=== PATIENT | female | born 1960 | race Caucasian/White ===

== ENCOUNTER → 2016-09-11 07:52 | Outpatient (CLI) | payer BC | END | disposition home or self-care (01) | LOC: D.NM 07:52 | DX: K31.84 Gastroparesis (principal) ==

== ENCOUNTER → 2016-11-19 17:07 | Outpatient (CLI) | payer BC | END | disposition home or self-care (01) | LOC: D.MAMMO 16:15 | DX: Z12.31 Encounter for screening mammogram for malignant neoplasm of breast (principal) ==

== ENCOUNTER → 2017-01-06 07:32 | Outpatient (CLI) | payer BC | END | disposition home or self-care (01) | LOC: D.NM 07:32 | DX: D37.1 Neoplasm of uncertain behavior of stomach (principal) ==

== ENCOUNTER → 2017-07-24 13:06 | Outpatient (CLI) | payer BC | END | disposition home or self-care (01) | LOC: D.RAD 13:06 | DX: R11.2 Nausea with vomiting, unspecified (principal); Z90.3 Acquired absence of stomach [part of] ==

== ENCOUNTER 2017-07-24 20:59 | Emergency (ER) | payer BC ==
[2017-07-25 00:04] LABS: BASOPHILS 0.4 % (0-2); EOSINOPHILS 3.4 % (0-7); HEMATOCRIT 33.6 % (36.0-48.0); HEMOGLOBIN 11.3 g/dL (12-16); IMMATURE GRANULOCYTES 0.6 % (0-5); LYMPHOCYTES 15.7 % (15-50); MCH 32.7 pg (26.0-34.0); MCHC 33.6 g/dL (31.0-37.0); MCV 97.1 fL (80.0-100.0); MEAN PLATELET VOLUME 9.2 fL (7.4-10.4); MONOCYTES 5.6 % (2-11); NEUTROPHILS 74.3 % (40-80); PLATELET COUNT 352 10x3/uL (130-400); RBC 3.46 10x6/uL (4.00-5.40); RDW 13.1 % (11.5-14.5); WBC 9.9 10x3/uL (4.8-10.8)
[2017-07-25 00:25] LABS: ALBUMIN 3.1 g/dL (3.4-5.0); ALKALINE PHOSPHATASE 66 U/L (46-116); ALT (SGPT) 28 U/L (10-68); AMYLASE - SERUM 17 U/L (25-115); CALC OSMOLALITY 282 mosm/kg (275-300); CALCIUM 8.4 mg/dL (8.5-10.1); CARBON DIOXIDE 23.7 mmol/L (21.0-32.0); CHLORIDE - SERUM 106 mmol/L (98-107); CREATININE - SERUM 0.8 mg/dL (0.6-1.3); GLUCOSE 76 mg/dL (74-106); LIPASE 66 U/L (73-393); POTASSIUM - SERUM 3.5 mmol/L (3.5-5.1); PROTEIN - SERUM 7.1 g/dL (6.4-8.2); SODIUM 143 mmol/L (136-145); UREA NITROGEN 10 mg/dL (7-18); eGFR NON AFRICAN AMERICAN 78 mL/min (90-120)
== END 2017-07-25 02:50 | disposition home or self-care (01) ==
LOC: D.ER 20:59
PROVIDERS: Family Medicine
DX: D73.5 Infarction of spleen (principal); R10.9 Unspecified abdominal pain; Z85.028 Personal history of other malignant neoplasm of stomach

== ENCOUNTER → 2017-11-28 19:00 | Outpatient (CLI) | payer BC | END | disposition home or self-care (01) | LOC: D.MAMMO 10:00 | DX: Z12.31 Encounter for screening mammogram for malignant neoplasm of breast (principal) ==

== ENCOUNTER → 2018-11-03 14:02 | Outpatient (CLI) | payer BC | END | disposition home or self-care (01) | LOC: D.CT 14:02 | PROVIDERS: ATTEND Family Medicine | DX: C44.92 Squamous cell carcinoma of skin, unspecified (principal) ==

== ENCOUNTER 2018-11-30 08:00 | Outpatient (CLI) | payer BC | END 2018-11-30 23:59 | disposition home or self-care (01) | LOC: D.MAMMO 08:00 | PROVIDERS: ATTEND Family Medicine | DX: Z12.31 Encounter for screening mammogram for malignant neoplasm of breast (principal) ==

== ENCOUNTER 2018-12-17 09:00 | Outpatient (CLI) | payer BC | END 2018-12-17 10:00 | disposition home or self-care (01) | LOC: D.MAMMO 09:00 | PROVIDERS: ATTEND Family Medicine | DX: R92.8 Other abnormal and inconclusive findings on diagnostic imaging of breast (principal) ==

== ENCOUNTER → 2019-01-04 15:00 | Outpatient (CLI) | payer BC | END | disposition home or self-care (01) | LOC: D.LABREF 15:00 | PROVIDERS: ATTEND Internal Medicine Pulmonary Disease | DX: R93.89 Abnormal findings on diagnostic imaging of other specified body structures (principal) ==

== ENCOUNTER → 2019-01-04 17:32 | Outpatient (CLI) | payer BC ==
[2019-01-05 11:10] LABS: ANA REFLEX - DIRECT Negative (Negative)
[2019-01-06 16:08] LABS: ANCA - ANTIMYELOPEROXIDASE <9.0 U/mL (0.0-9.0); ANCA - ANTIPROTEINASE 3 <3.5 U/mL (0.0-3.5); ANCA - ATYPICAL <1:20 titer (Neg:<1:20); ANCA - CYTOPLASMIC <1:20 titer (Neg:<1:20); ANCA - PERINUCLEAR <1:20 titer (Neg:<1:20)
== END | disposition home or self-care (01) ==
LOC: D.LABREF 17:32
PROVIDERS: ATTEND Internal Medicine Pulmonary Disease
DX: R93.89 Abnormal findings on diagnostic imaging of other specified body structures (principal)

== ENCOUNTER → 2019-02-09 10:13 | Outpatient (CLI) | payer BC | END | disposition home or self-care (01) | LOC: D.CT 02-03 11:00 | PROVIDERS: ATTEND Internal Medicine Pulmonary Disease | DX: R93.89 Abnormal findings on diagnostic imaging of other specified body structures (principal) ==

== ENCOUNTER 2019-12-03 10:15 | Outpatient (CLI) | payer BC | END 2019-12-03 11:15 | disposition home or self-care (01) | LOC: D.MAMMO 10:15 | PROVIDERS: ATTEND Family Medicine | DX: Z12.31 Encounter for screening mammogram for malignant neoplasm of breast (principal) ==

== ENCOUNTER → 2020-09-29 11:32 | Outpatient (CLI) | payer BC | END | disposition home or self-care (01) | LOC: D.NM 11:32 | PROVIDERS: ATTEND Internal Medicine Gastroenterology | DX: Z85.028 Personal history of other malignant neoplasm of stomach (principal) ==